=== PATIENT | female | born 1970 | race Caucasian/White ===

== ENCOUNTER → 2016-07-11 | Outpatient (CLI) | payer OTHER ==
[2016-07-11 08:09] LABS: HEMATOCRIT 36.7 % (37.0-47.0); HEMOGLOBIN 12.1 gm/dL (12.0-15.0); PLATELET COUNT 225 thou/uL (150-400); RDW 13.1 % (10.5-14.5)
[2016-07-11 08:10] LABS: MANUAL DIFF YES
[2016-07-11 08:17] LABS: CALCIUM 8.8 mg/dL (8.5-10.1); POTASSIUM 3.8 mmol/L (3.5-5.1)
[2016-07-11 08:21] LABS: ALBUMIN 3.6 g/dL (3.4-5.0); TOTAL BILIRUBIN 0.4 mg/dL (<0.1-1.0); TOTAL PROTEIN 7.5 g/dL (6.4-8.2)
[2016-07-11 08:55] LABS: ABSOLUTE NEUTROPHILS 5.7 thou/uL (1.4-8.2); ANISOCYTOSIS SLIGHT; METAMYELOCYTES 2 %; TOTAL CELL COUNT 100
== END ==
LOC: LABMALL 07:27
PROVIDERS: Specialist
DX: M05.79 Rheumatoid arthritis with rheumatoid factor of multiple sites without organ or systems involvement (principal)

== ENCOUNTER → 2018-10-22 | Outpatient (CLI) | payer OTHER | LOC: RAD 11:33 | DX: Z12.31 Encounter for screening mammogram for malignant neoplasm of breast (principal) ==

== ENCOUNTER 2019-09-12 11:48 | Emergency (ER) | payer OTHER ==
[~2019-09-12] VITALS: Ht 170.2 cm; Wt 69.8 kg
[2019-09-12] MEDS ORDERED: LEFLUNOMIDE20 MG PO (11:57)
[2019-09-12] MEDS ORDERED: PREDNISONE 1 MG1 M1 PO (11:58)
[2019-09-12] MEDS ORDERED: MORPHINE SULFAT15 MG PO (11:58)
[2019-09-12] MEDS ORDERED: TERBINAFINE HC250 MG PO (11:58)
[2019-09-12] MEDS ORDERED: FAMOTIDINE40 MG PO (11:59)
[2019-09-12] MEDS ORDERED: ENBREL50 MG/1 M1 SUBLING (11:59)
[2019-09-12] MEDS ORDERED: HYOSCYAMINE0.375 MG PO (11:59)
[2019-09-12] MEDS ORDERED: SINGULAIR 10 MG10 M1 PO (11:59)
[2019-09-12] MEDS ORDERED: MELOXICAM15 MG PO (11:59)
[2019-09-12] MEDS ORDERED: OXYCODONE-ACET1 EACH PO (12:00)
[2019-09-12] MEDS ORDERED: AMITRIPTYLINE H25 M2 PO (12:00)
[2019-09-12] MEDS ORDERED: METOPROLOL SUCC25 M1 PO (12:00)
[2019-09-12] MEDS ORDERED: DULOXETINE HCL30 MG PO (12:00)
[2019-09-12] MEDS ORDERED: ARMODAFINIL150 MG PO (12:02)
[2019-09-12 14:02] VITALS: BP 136/82
== END 2019-09-12 14:04 | disposition home or self-care (01) ==
LOC: ER 11:48
DX: M79.621 Pain in right upper arm (principal); M79.622 Pain in left upper arm; R06.02 Shortness of breath; M06.9 Rheumatoid arthritis, unspecified; K21.9 Gastro-esophageal reflux disease without esophagitis; Z91.048 Other nonmedicinal substance allergy status; Z79.899 Other long term (current) drug therapy

== ENCOUNTER → 2019-09-15 | Outpatient (CLI) | payer OTHER ==
[~2019-09-15] MED LIST: AMITRIPTYLINE H25 M2 PO; ARMODAFINIL150 MG PO; DULOXETINE HCL30 MG PO; ENBREL50 MG/1 M1 SUBLING; FAMOTIDINE40 MG PO; HYOSCYAMINE0.375 MG PO; LEFLUNOMIDE20 MG PO; MELOXICAM15 MG PO; METOPROLOL SUCC25 M1 PO; MORPHINE SULFAT15 MG PO; OXYCODONE-ACET1 EACH PO; PREDNISONE 1 MG1 M1 PO; SINGULAIR 10 MG10 M1 PO; TERBINAFINE HC250 MG PO
== END ==
LOC: ULTRA 16:01
DX: M79.601 Pain in right arm (principal)

== ENCOUNTER → 2019-10-15 | Outpatient (CLI) | payer OTHER ==
[2019-10-15 11:17] LABS: HEMATOCRIT 36.6 % (37.0-47.0); HEMOGLOBIN 12.2 gm/dL (12.0-15.0); MCH 31.5 pg (26.0-34.0); MCHC 33.3 g/dL (28.0-37.0); MCV 94.7 fL (80.0-100.0); PLATELET COUNT 264 thou/uL (150-400); RBC 3.86 mil/uL (4.20-5.00); RDW 13.8 % (10.5-14.5)
[2019-10-15 11:41] LABS: ALBUMIN 4.1 g/dL (3.4-5.0); ANION GAP 12 mmol/L (7-16); BUN 29 mg/dL (7-18); CHLORIDE 103 mmol/L (98-107); CHOLESTEROL 260 mg/dL (<200); CO2 26 mmol/L (21-32); GLUCOSE 74 mg/dL (74-106); HDL CHOLESTEROL 112 mg/dL (>40); LDL CHOLESTEROL 132 mg/dL (<100); POTASSIUM 3.7 mmol/L (3.5-5.1); SGOT 19 U/L (15-37); SGPT 35 U/L (30-65); SODIUM 141 mmol/L (136-145); TC:HDL 2.3 Ratio (Not establshd); TOTAL BILIRUBIN 0.8 mg/dL (0.2-1.0); TOTAL PROTEIN 7.5 g/dL (6.4-8.2); TRIGLYCERIDE 83 mg/dL (<150); VLDL 17 mg/dL (<40)
[2019-10-15 12:29] LABS: ABSOLUTE NEUTROPHILS 8.6 thou/uL (1.4-8.2); ANISOCYTOSIS SLIGHT; ATYPICAL LYMPHS 1 %; METAMYELOCYTES 4 %
[2019-10-16 00:06] LABS: GLYCOHEMOGLOBIN (HGB A1C) 5.3 % (4.8-5.6)
== END ==
LOC: LAB 10:31
PROVIDERS: ATTEND Internal Medicine Rheumatology
DX: M05.79 Rheumatoid arthritis with rheumatoid factor of multiple sites without organ or systems involvement (principal); I10 Essential (primary) hypertension

== ENCOUNTER → 2020-08-31 | Outpatient (CLI) | payer OTHER ==
[2020-08-31 08:33] LABS: ABSOLUTE NEUTROPHILS 6.5 thou/uL (1.4-8.2); BASOPHILS 0.5 % (0.0-2.0); EOSINOPHILS 1.5 % (0.0-3.0); HEMATOCRIT 34.1 % (37.0-47.0); HEMOGLOBIN 11.4 gm/dL (12.0-15.0); LYMPHOCYTES 20.2 % (24.0-44.0); MCH 30.9 pg (26.0-34.0); MCHC 33.5 g/dL (28.0-37.0); MCV 92.2 fL (80.0-100.0); MONOCYTES 8.1 % (1.0-8.0); PLATELET COUNT 224 thou/uL (150-400); POLYS 69.7 % (36.0-66.0); WBC 9.3 thou/uL (4.0-11.0)
[2020-08-31 08:43] LABS: ANION GAP 11 mmol/L (7-16); BUN 21 mg/dL (7-18); CHLORIDE 101 mmol/L (98-107); CHOLESTEROL 180 mg/dL (<200); CO2 26 mmol/L (21-32); GLUCOSE 77 mg/dL (74-106); HDL CHOLESTEROL 87 mg/dL (>40); LDL CHOLESTEROL 78 mg/dL (<100); POTASSIUM 3.8 mmol/L (3.5-5.1); SGOT 18 U/L (15-37); SGPT 32 U/L (30-65); SODIUM 138 mmol/L (136-145); TC:HDL 2.1 Ratio (Not establshd); TOTAL BILIRUBIN 0.4 mg/dL (0.2-1.0); TOTAL PROTEIN 7.6 g/dL (6.4-8.2); TRIGLYCERIDE 75 mg/dL (<150); VLDL 15 mg/dL (<40)
== END ==
LOC: LAB 07:48
PROVIDERS: ATTEND Internal Medicine Rheumatology
DX: M05.79 Rheumatoid arthritis with rheumatoid factor of multiple sites without organ or systems involvement (principal); Z79.899 Other long term (current) drug therapy